=== PATIENT | male | born 1970 | race Caucasian/White ===

== ENCOUNTER 2025-02-12 11:56 | Emergency (ER) | payer OTHER, SELFPAY ==
[2025-02-12 12:05] VITALS: BP 131/89; PULSE 62; RESP 16; TEMP 36.3; O2SAT 99
--- NOTE | 2025-02-12 12:48 | ED.SKABFB ---
HPI - Skin/Abscess/Foreign Bdy General Chief complaint: Skin/Abscess/Foreign Body Stated complaint: Hemroid flare up Source: patient and RN notes reviewed Mode of arrival: ambulatory Limitations: no limitations History of Present Illness HPI narrative: 54-year-old male patient presents to the [facility] complaining of hemorrhoid pain and itchiness for approximally for 5 days. He says he has a history of hemorrhoids, he believes he has a flare up. Patient denies any blood in his stools, fevers, eczema chills, problems defecating, any other symptoms. Patient has been doing preparation H without relief. Related Data Home Medications ?Medication ?Instructions ?Recorded ?Confirmed ?Last Taken ?Type venlafaxine 37.5 mg 37.5 mg PO DAILY 02/13/19 02/12/25 Unknown History capsule,extended release 24 hr (Effexor XR) buspirone 5 mg tablet 5 mg PO BID 10/29/20 02/12/25 Unknown History Allergies Allergy/AdvReac Type Severity Reaction Status Date / Time gluten Allergy Unknown Celiac Verified 02/12/25 12:03 Disease Review of Systems Review of Systems: CONSTITUTIONAL: Denies fever, chills, or sweats. EYES: Denies visual changes, redness, or discharge. ENT: Denies rhinorrhea, congestion, sore throat, or otalgia. CARDIOVASCULAR: Denies chest pain, palpitations, or edema. RESPIRATORY: Denies cough or dyspnea. GASTROINTESTINAL: Denies abdominal pain, nausea, vomiting, or diarrhea. Positive for rectal pain and itchiness. GENITOURINARY: Denies dysuria or hematuria. SKIN: Denies rash or itching. MUSCULOSKELETAL: Denies back pain, joint pain, or myalgia. NEUROLOGIC: Denies headache, numbness, or weakness. PSYCHIATRIC: Denies anxiety or depression. All other systems reviewed are negative, except as documented in HPI. [facility] Past Medical History Medical History Celiac disease Long-term current use of testosterone replacement therapy Male hypogonadism Dermatitis associated with moisture Family History Family History Mother Family history of elevated blood lipids Father Family history of dementia Cancer of unknown origin Social History Social History (Reviewed 02/12/25 @ 12:50 by BILLY Wall Smoking status: Never smoker Second hand tobacco smoke exposure: No Alcohol intake: current Alcohol use details: occasional Lack of Transportation: No Lack of Food: Never True Current Housing: I Have Housing Concerned About Future Housing: No Difficulty Paying Gas/Electric Bills: No Difficulty Paying for Meds: No Currently Unemployed: YES Education: Master's Degree or Higher Difficulty w/ Childcare or Family Care: No Comments At the time of my signature, I reviewed and agree with the nursing past medical, surgical, social, and family history. There is no relevant family history pertinent to the patient complaint. Exam Narrative: GENERAL: This is a well-nourished, well-developed adult, in no apparent distress. They are non ill-appearing, nontoxic appearing. HEAD: normocephalic, atraumatic. EYES: Sclera clear/white. Conjunctiva normal. Vision is grossly intact. Extraocular movements intact EARS: External ears normal, Hearing grossly intact. NOSE: External nose normal THROAT: Mucous membranes moist, NECK: Neck supple, CARDIOVASCULAR: Regular rate and rhythm RESPIRATORY: Respiratory rate normal, respiratory effort nonlabored, no respiratory distress GASTROINTESTINAL: Abdomen soft, non-tender, nondistended. Anus mildly erythemic, no swelling, no drainage, no area of fluctuance or induration. No external hemorrhoid present. SKIN: warm, Dry, intact with no suspicious lesions or rash, good texture and turgor. NEURO: awake, alert, and oriented to person, place and time. There were no obvious focal neurologic abnormalities. EXTREMITIES: No joint tenderness, effusion, or edema noted. BACK: Nontender without deformity. Course Course Emergency Course: Portions of this record may have been created with voice recognition software Level of Care: Express Care Visit Vital Signs Vital signs: Vital Signs Temperature 97.3 F L 02/12/25 12:05 Pulse Rate 62 02/12/25 12:05 Respiratory Rate 16 02/12/25 12:05 Blood Pressure 131/89 02/12/25 12:05 Pulse Oximetry 99 02/12/25 12:05 Temperature 97.3 F L 02/12/25 12:05 Pulse Rate 62 02/12/25 12:05 Respiratory Rate 16 02/12/25 12:05 Blood Pressure 131/89 02/12/25 12:05 Pulse Oximetry 99 02/12/25 12:05 Reviewed MDM - Skin/Abscess/Foreign Bdy MDM Narrative Medical decision making narrative: 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 No external hemorrhoid present, no evidence of perirectal abscess. Mild irritation to the anus. Patient likely has internal hemorrhoid. Patient not use an internal insert with his preparation H, advised patient to go purchase 1 use it make sure the preparation H product contains phenylephrine. Will send with a prescription of hydrocortisone-lidocaine help with itchiness and discomfort. Discussed physical exam findings. Advised supportive measures and signs/symptoms to go to the ER. Pt is appropriate for outpt treatment and f/u. Differential Diagnosis Differential diagnosis: Likely other (Hemorrhoid, perirectal abscess,, Fissure, contact dermatitis) Critical Care Time Critical Care Time Critical Care Time: No Discharge Plan Discharge Clinical Impression: Acute hemorrhoid Patient Disposition: Home Condition: Stable Instructions: Hemorrhoids (ED) Additional Instructions: Continue use preparation H twice a day for maximum of 2 weeks, make sure a contains phenylephrine and help shrink the hemorrhoid. It appears or hemorrhoid is internal, please use the insert provided by the preparation H product to apply the cream internally to help with your symptoms. You may use the lidocaine/hydrocortisone gel as directed to help with itchiness and pain. Apply topically to the anus. Consume plenty of fiber in your diet, drink plenty of fluids. Avoid sitting or straining too long on the toilet. Follow-up with PCP in 3-5 days. Go to the ER for any serious concerns, severe pain, or problems defecating. Patient Language: Nepali Prescriptions: New sipegebwn-ezczuzrpzuaiaz-khsc 2.8-0.55 % gel 1 applic RECTAL BID 7 Days Qty: 100 0RF No Action (DME) BD Regular Bevel [place] 18 gauge x 1 1/2 needle See Rx Instructions .Route Qty: 100 1RF Rx Instructions: Use to draw up Testosterone weekly. venlafaxine [Effexor XR] 37.5 mg capsule,extended release 24hr 37.5 mg PO DAILY buspirone 5 mg tablet 5 mg PO BID (DME) BD Luer-Yvon Syringe 3 mL 21 gauge x 1 syringe See Rx Instructions .Route Qty: 100 2RF Rx Instructions: Use to inject Testosterone (DME) syringe with needle 3 mL 23 gauge x 1 1/2 syringe See Rx Instructions .Route Qty: 100 3RF Rx Instructions: Use to inject testosterone testosterone 30 mg/actuation (1.5 mL) solution in metered pump w/rachele 2 pump topical DAILY Qty: 90 2RF Rx Instructions: apply 1 dose/pump to EACH underarm area rosuvastatin 10 mg tablet 10 mg PO DAILY Qty: 90 0RF Follow-up/Referrals: Camacho,MD Susanna [Primary Care Provider, Family Practice] Time of Disposition: 12:41
== END 2025-02-12 12:48 | disposition home or self-care (01) ==
PROVIDERS: PCP Family Medicine
DX: K64.9 Unspecified hemorrhoids (principal); Z79.899 Other long term (current) drug therapy
CPT/HCPCS: 99213; G0463